=== PATIENT | male | born 1975 | race Caucasian/White ===

== ENCOUNTER → 2024-10-22 13:45 | Outpatient (BNVA) | payer OTHER, SELFPAY | PROVIDERS: Visit Provider Nurse Practitioner Family | DX: M79.674 Pain in right toe(s) (principal); M79.671 Pain in right foot | CPT/HCPCS: 84550 ==

== ENCOUNTER → 2024-10-31 09:08 | Outpatient (BNVA) | payer OTHER, SELFPAY | PROVIDERS: Visit Provider Nurse Practitioner Family | DX: M79.671 Pain in right foot (principal) | CPT/HCPCS: 73630 ==

== ENCOUNTER → 2024-12-25 07:45 | Outpatient (BNVA) | payer OTHER, SELFPAY | PROVIDERS: PCP Family Medicine; Visit Provider Family Medicine | DX: M79.671 Pain in right foot (principal); M79.674 Pain in right toe(s); Z12.5 Encounter for screening for malignant neoplasm of prostate | CPT/HCPCS: 80053; 84443; 84550; 85025; 85651; 86038; 86140; 86200; 86431; G0103 ==